=== PATIENT | male | born 1945 | race Caucasian/White ===

== ENCOUNTER 2021-05-17 15:13 | Inpatient (IN) | payer MEDICARE, SELFPAY ==
--- NOTE | ~2021-05-17 | XR_ITS ---
XR chest 2V DATE: 05/24/2021 06:26 INDICATION: Confusion. Recent abdominal surgery. History of congestive heart failure. TECHNIQUE: 2 views COMPARISON: None FINDINGS: Status post sternotomy and coronary artery bypass graft surgery. Left-sided transvenous pac emaker device with leads overlying right atrium and right ventricle. Heart size is within normal range. There is aortic calcification and ectasia. There is prominent discoid atelectasis or scarring in the medial right lower lung. There is mild infiltrate or atelectasis at the lung bases. No pulmonary vascular congestion. No pleural effusion or pneumothorax is noted. Myriam overlie the upper mid abdomen. Subacute or old lateral left seventh rib fracture. Diffuse osteopenia. IMPRESSION: Recent abdominal surgery with skin myriam over the included upper abdomen Bibasilar atelectasis Reviewed, dictated and finalized at location A. ING CARRIER
--- OUTSIDE RECORDS SUMMARY | 2021-05-17 15:23 | XMS_ITS | Encounter Summary ---
:1945 Author Care Team Providers Name Role Phone Dr. Mina Ramírez Primary Care Provider [phone] Reason for Visit diabetic foot exam; Bilateral Diabetic t oenail fungus; Bilateral Diabetic Ingrown Toenails Assessment and Plan 1. History of influenza vaccinat ion 2. Peripheral circulatory disord er due to type 2 diabetes mellitus 3. Onychomycosis of toenails Patient presents with fungus a nd recurrent ingrown toenails. Based on history, physical exam, and prior treatments, I recommend debridement of the toenails, removing the offending borders. 4. Ingrowing toenail ? ingrown toenail: care inst ructions 5. Pain in left foot 6. Pain in right foot Discussion Note Time spent interviewing, examining, treating the patient, and documenting the chart was 35 minutes. Plan of Care Patient Instructions Instructed patient on how to perfor m daily inspection of their feet for anything out of the ordinary such as cuts, scrape s, blisters, foreign objects, etc. Also discussed moisturizing the skin and insp ecting their shoes for any form of breakdown. Discussed wearing firm soled shoes aroun d their home. Patient is to test water temperature before soaking or bathing. Reminders Provider Appointments Medicare Marla Kay Established 06/22/2021 YUSEF Carroll 9:30AM Lab None recorded. ? ? Referral None recorded. ? ? Procedures None recorded. ?
--- OUTSIDE RECORDS SUMMARY | 2021-05-17 15:23 | XMS_ITS ---
:1945 Author Care Team Providers Name Role Phone DR. JUAN MIGUEL MALIK Primary Care Provider [phone] Allergies Code Code System Name Reaction Severity Status Onset NKDA ? Medications Name Status Start Date Stop Date ? ? amlodipine 10 mg tablet Completed ? 01/06/20 21 TAKE 1 TABLET BY MOUTH DAILY aspirin 325 mg tablet Active ? Not availa ble Take 1 tablet every day by oral route. doxycycline hyclate 100 mg tablet Completed ? 01/05/2021 TAKE 1 TABLET BY MOUTH TWO TIMES A DAY finasteride 5 mg tablet Active ? Not avai lable TAKE 1 TABLET BY MOUTH DAILY Fish Oil 1,000 mg (120 mg-180 mg) capsule Active ? Not available Take by oral route. Fluzone High-Dose Quad (PF) 240 mcg/0.7 mL IM syringe Ac tive ? Not available ADM 0.7ML IM UTD gabapentin 300 mg capsule Active ? Not av ailable TAKE 1 CAPSULE BY MOUTH DAILY AT BEDTIME Glipizide XL 5 mg tablet,extended release Completed ? 01/05/2021 Take 1 tablet every day by oral route. hydrochlorothiazide 25 mg tablet Completed ? 01/05/2021 Take 1 tablet every day by oral route. lisinopril 20 mg tablet Active ? Not avai lable TAKE 1 TABLET BY MOUTH DAILY lisinopril 40 mg tablet Completed ? 01/06/20 21 Take 1 tablet by mouth daily metformin ER 500 mg tablet,extended release 24 hr Active ? Not available TAKE 1 TABLET BY MOUTH DAILY metoprolol tartrate 100 mg tablet Completed ? 12/23
[2021-05-17 15:41] VITALS: BMI 24.5
--- NOTE | 2021-05-17 15:45 | ADMGEN ---
This patient, Valeriano Lopez, was admitted to 2nd Floor Room 208-2. Patient/family oriented to hospital policies and general routines including ID bracelet, bed and alarms, visiting hours, pain management, procedures, bathroom and other care routines, personal items, smoking policy, room service/diet, and visiting hours. Information on how to activate the Rapid Response Team has been discussed. Patient/Family are encouraged to report perceived risks to care and to ask questions if they do not understand what they are told or what they should do.
[2021-05-17 16:00] VITALS: BP 146/68; PULSE 76; RESP 18; TEMP 36.4; O2SAT 99
[2021-05-17 16:20] VITALS: BP 146/68; PULSE 76; RESP 18; TEMP 36.4; O2SAT 99; BMI 24.5
--- NOTE | 2021-05-17 16:42 | PC.NURSE ---
is leaving for the evening, therapy is in for evaluation
[2021-05-17 16:55] LABS: Glucose Point of Care 142 mg/dl (65-105)
--- NOTE | 2021-05-17 18:00 | PC.NURSE ---
pt states he goes to bed by 1800 usually, requests hs meds now so he is not woken up, bed alarm is on, lights off per pt request, urinal at bedside, fresh depend applied, dressing change done on op site L groin, photos taken, call light in reach
[2021-05-17] MEDS: ATORVASTATIN 40 MG TABLET 80 MG PO (18:11)
[2021-05-17] MEDS: GABAPENTIN 100 MG CAPSULE PO (18:11)
[2021-05-17] MEDS: ACETAMINOPHEN 325 MG TABLET 650 MG PO (18:12)
[2021-05-17 20:46] LABS: Glucose Point of Care 117 mg/dl (65-105)
[2021-05-18] VITALS: BP 136/67; PULSE 72; RESP 18; TEMP 36.7; O2SAT 95
[2021-05-18 05:22] LABS: Hemoglobin 9.9 g/dL (12.4-15.3); Mean Corpuscular HGB Conc 31.9 g/dL (32.0-36.0); Mean Corpuscular Hemoglobin 29.5 pg (27.0-31.0); Mean Corpuscular Volume 92.3 fL (78.0-102.0); Mean Platelet Volume 9.4 fl (8.7-11.0); Platelet Count Result 305 K/mm3 (150-420); Red Blood Count 3.36 M/mm3 (4.70-6.10); Red Cell Distribution Width 15.9 % (11.6-14.4); White Blood Count 7.6 K/mm3 (4.8-10.8)
[2021-05-18 05:37] LABS: Alanine Aminotransferase 90 U/L (16-63); Albumin Level 2.2 g/dL (3.4-5.0); Alkaline Phosphatase 142 U/L (46-116); Anion Gap 9 mmol/L (8-16); Aspartate Amino Transferase 26 U/L (15-37); Bilirubin,Total 0.7 mg/dL (0.00-1.00); Blood Urea Nitrogen 7 mg/dL (7-18); Calcium 7.9 mg/dL (8.5-10.1); Carbon Dioxide 24 mmol/L (21-32); Chloride 106 mmol/L (98-108); Estimated CRCL calculation 72 ml/min; Estimated Glomerular Filt Rate > 60; Glucose 111 mg/dL (70-99); Magnesium 1.6 mg/dL (1.8-2.4); Osmolality Calculated 287 mOsm/kg (285-295); Potassium 3.6 mmol/L (3.5-5.1); Sodium 139 mmol/L (136-145); Total Protein 5.3 g/dL (6.4-8.2)
--- NOTE | 2021-05-18 06:52 | PC.NURSE ---
Spoke with Barbara, patient , she states she thinks she has plug in for wound vac and will bring it in as soon as she can. Thi executive compensation analyst informed.
--- OUTSIDE RECORDS SUMMARY | 2021-05-18 07:38 | XMS_ITS | Continuity of Care Document ---
:[address] [facility] Care Team Providers Name Role Phone [facility] Unavailable Unavailable Problems Combined list of problems from Department of Defense and Veterans Affairs facilities. It does not include entries that were removed or entered in error. Problem Status Onset Problem Date of Comments Source Date Type Resolution Blindness - Both Active Condition [facility] Eyes ([facility] [id number]) Sep 23, 2018 Entered By: SHERITA REYES Comment: secondary to diabetes CAD - Coronary Active Condition [facility] Artery Disease ([facility] [id number])
--- OUTSIDE RECORDS SUMMARY | 2021-05-18 07:38 | XMS_ITS | Encounter Summary ---
:1945 Author Organization Department [facility] Address [address] [place] [address] Care Team Providers Name Role Phone STALINLETICIA RAQUEL Primary Care Provider Unavailable Insurance Providers: All historical and current Section Date Range: From patient's date of to the date document was created.This section includes the names of all active insurance providers for the patient. Insurance Type of Plan Start of End of Group Member Insurance Policy P atient's Provider Coverage Name Policy Policy Number ID Provider's Petersen's Relationship Coverage Coverage Telephone Name to Policy Number Petersen [facility]MERLY [facility] MEDICARE MED Aug [id number] [phone] LULI GARCIA PATIENT SUPPLEMEN SUP 2008 [id number] [place] BCBS ID MEDICARE MEDIC Aug [id number] DIVYA GARCIA SUPPLEMEN ARE 2008 [id number] [phone] [place] SUPPL EMENT [facility] MEDICARE MEDIC Aug [id number] [phone] DIVYA KHAN PATIENT [place] SUPPLEMEN ARE 2008 [id number] [place] SUPPL EMENT MEDICARE MEDICARE PART Aug 23, PART A [id number] [phone] DIVYA GARCIA PATIENT (WNR) (M) A 2008 95A 7 MAS MEDICARE MEDICARE PART Aug 23, PART B [id number] [phone] DIVYA GARCIA PATIENT (WNR) (M) B 2008 95
[2021-05-18 07:39] LABS: Glucose Point of Care 120 mg/dl (65-105)
--- OUTSIDE RECORDS SUMMARY | 2021-05-18 07:39 | XMS_ITS | Encounter Summary ---
:1945 Author Organization Department [facility] rs Address [address] [place] [address] Care Team Providers Name Role Phone RAQUEL LANZA Primary Care Provider Unavailable Insurance Providers: All [...] Telephone Name to Policy Number Petersen [facility]LY [facility] MEDICARE MED Aug [id number] [phone] LULI GARCIA PATIENT SUPPLEMEN SUP 2008 [id number] [place] BCBS ID MEDICARE MEDIC Aug [id number] DIVYA GARCIA [place] SUPPLEMEN ARE 2008 [id number] [phone] [place] SUPPL EMENT [facility] MEDICARE MEDIC Aug [id number] [phone] DIVYA KHAN PATIENT [place] SUPPLEMEN ARE 2008 [id number] [place] SUPPL EMENT MEDICARE MEDICARE PART Aug 23, PART A [id number] DIVYA GARCIA PATIENT (WNR) (M) A 2008 95A 7 MAS MEDICARE MEDICARE PART Aug 23, PART B [id number] [phone] DIVYA GARCIA PATIENT (WNR) (M) B 2008
--- OUTSIDE RECORDS SUMMARY | 2021-05-18 07:39 | XMS_ITS | Encounter Summary ---
:1945 Author Organization Department [facility] rs Address [address] [place] [address] Care Team Providers Name Role Phone RAQUEL [...] Coverage Telephone Name to Policy Number Petersen ANTHE[place] MEDICARE MED Aug [id number] [phone] LULI GARCIA PATIENT SUPPLEMEN SUP 2008 [id number] [place] BC[place] MEDICARE MEDIC Aug [id number] DIVYA GARCIA PA TIENT SUPPLEMEN ARE 2008 [id number] [phone] [place] SUPPL EMENT [facility] MEDICARE MEDIC Aug [id number] [phone] DIVYA KHAN PATIENT [place] SUPPLEMEN ARE 2008 [id number] [place] SUPPL EMENT MEDICARE MEDICARE PART Aug 23, PART A [id number] DIVYA GARCIA PATIENT (WNR) (M) A 2008 95A 7 MAS MEDICARE MEDICARE PART Aug 23, PART B [id number] [phone] DIVYA GARCIA PATIENT (WNR) (M) B 2008 95A
--- OUTSIDE RECORDS SUMMARY | 2021-05-18 07:39 | XMS_ITS | Encounter Summary ---
:1945 Author Organization Department [facility] rs Address [address] [place] [address] Care Team Providers Name Role Phone RAQUEL [...] Number Petersen ANTHEM MEDICARE MED Aug [id number] [phone] LULI GARCIA PATIENT SUPPLEMEN SUP 2008 [id number] [place] BC[place] MEDICARE MEDIC Aug [id number] DIVYA GARCIA SUPPLEMEN ARE 2008 [id number] [phone] [place] SUPPL EMENT [facility] MEDICARE MEDIC Aug [id number] [phone] DIVYA KHAN PATIENT [place] SUPPLEMEN ARE 2008 [id number] [place] SUPPL EMENT MEDICARE MEDICARE PART Aug 23, PART A [id number] [phone] DIVYA GARCIA PATIENT (WNR) (M) A 2008 95A 7 MAS MEDICARE MEDICARE PART Aug 23, PART B [id number] [phone] DIVYA GARCIA PATIENT (WNR) (M) B 2008 95
--- OUTSIDE RECORDS SUMMARY | 2021-05-18 07:40 | XMS_ITS ---
:1945 Author Care Team Providers Name Role Phone DR. JUAN MIGUEL MALIK Primary Care Provider [phone] Allergies Code Code System Name Reaction Severity [...]
--- OUTSIDE RECORDS SUMMARY | 2021-05-18 07:40 | XMS_ITS | Encounter Summary ---
:1945 Author Organization Department [facility] rs Address [address] [place] [address] Care Team Providers Name Role Phone RAQUEL [...] Coverage Telephone Name to Policy Number Petersen [facility] MEDICARE MED Aug [id number] [phone] LULI GARCIA PATIENT SUPPLEMEN SUP 2008 [id number] [place] MEDICARE MEDIC Aug [id number] DIVYA GARCIA PA TIEMALLORIE SUPPLEMEN ARE 2008 [id number] [phone] [place] SUPPL EMENT [facility] MEDICARE MEDIC Aug [id number] [phone] DIVYA KHAN PATIENT [place] SUPPLEMEN ARE 2008 [id number] [place] SUPPL EMENT MEDICARE MEDICARE PART Aug 23, PART A [id number] [phone] DIVYA GARCIA PATIENT (WNR) (M) A 2008 95A 7 MAS MEDICARE MEDICARE PART Aug 23, PART B [id number] [phone] DIVYA GARCIA PATIENT (WNR) (M) B 2008
--- OUTSIDE RECORDS SUMMARY | 2021-05-18 07:40 | XMS_ITS | Encounter Summary ---
:1945 Author Care Team Providers Name Role Phone Dr. Mina Ramírez Primary Care Provider [phone] Reason for Visit diabetic foot exam; Bilateral [...]
--- OUTSIDE RECORDS SUMMARY | 2021-05-18 07:40 | XMS_ITS | Encounter Summary ---
:1945 Author Organization Department [facility] rs Address [address] [place] [address] Care Team Providers Name Role Phone RAQUEL [...] Number Petersen ANTHEM MEDICARE MED Aug [id number] [phone] LULI GARCIA PATIENT SUPPLEMEN SUP 2008 [id number] [place] MEDICARE MEDIC Aug [id number] DIVYA GARCIA SUPPLEMEN ARE 2008 [id number] [phone] [place] SUPPL EMENT [facility] MEDICARE MEDIC Aug [id number] [phone] DIVYA KHAN PATIENT [place] SUPPLEMEN ARE 2008 [id number] [place] SUPPL EMENT MEDICARE MEDICARE PART Aug 23, PART A [id number] [phone] DIVYA GARCIA PATIENT (WNR) (M) A 2008 95A 7 MAS MEDICARE MEDICARE PART Aug 23, PART B [id number] [phone] DIVYA GARCIA PATIENT (WNR) (M) B 2008 95
[2021-05-18 07:51] VITALS: BP 144/66; PULSE 70; RESP 16; TEMP 37.2; O2SAT 98
--- NOTE | 2021-05-18 08:06 | PC.NURSE ---
Patient's delivered cord to wound vac and it is plugged in and charging.
[2021-05-18] MEDS: metFORMIN HCL XR 500 MG TAB.SR.24H PO (08:30)
[2021-05-18] MEDS: ASPIRIN 81 MG ENTERIC TABLET PO (08:30)
[2021-05-18] MEDS: PANTOPRAZOLE 40 MG TABLET PO (08:30)
[2021-05-18] MEDS: CLOPIDOGREL BISULFATE 75 MG TABLET PO (08:30)
[2021-05-18] MEDS: DOCUSATE SODIUM 100 MG CAPSULE PO ×2 (08:31→18:03)
[2021-05-18] MEDS: amLODIPine BESYLATE 5 MG TABLET 10 MG PO (08:31)
[2021-05-18] MEDS: lisinopriL 20 MG TABLET PO (08:31)
[2021-05-18] MEDS: FINASTERIDE 5 MG TABLET PO (08:31)
[2021-05-18] MEDS: ACETAMINOPHEN 325 MG TABLET 650 MG PO (08:33)
--- NOTE | 2021-05-18 10:26 | PM.IMHP ---
H&P: HPI History of Present Illness Date/Time: 05/18/21 10:26 this is a 75-year-old male that was accepted into our swing bed status post elective AAA repair. Patient admitted in swing bed for rehabilitation due to decreased balance decreased mobility in severe limited function endurant and/or mobility. The patient denies SOB, CP, palpitation, extremity numbness, abdominal tenderness ,lightheadedness, dizziness, constipation, diarrhea, chills, or fever. Chief Complaint: Weakness Review of Systems Review of Systems: A 14 organ system Review of Systems was performed and pertinent positives included in the HPI, otherwise remaining ROS is negative. [facility] Past Medical History Medical History (Updated 05/18/21 @ 10:27 by SHANNON Connelly) AAA (abdominal aortic aneurysm) Anemia Bilateral carotid artery stenosis without cerebral infarction CAD (coronary artery disease) Chronic headache COPD (chronic obstructive pulmonary disease) Diabetes mellitus Duodenal ulcer hemorrhage Frequent falls HLD (hyperlipidemia) HTN (hypertension) ICD (implantable cardioverter-defibrillator) battery depletion Incontinence of urine Neuropathy PAD (peripheral artery disease) Paroxysmal A-fib Peripheral circulatory disorder associated with type 2 diabetes mellitus Renal cyst, acquired Syncopal episodes TIA (transient ischemic attack) Tobacco dependence Ventricular tachycardia Vision loss of right eye Surgical History Surgical History (Updated 05/18/21 @ 09:57 by SHANNON Connelly) History of appendectomy History of hemiarthroplasty of hip 02/27/2017 History of hip surgery History of loop recorder S/P CABG (coronary artery bypass graft) 02/22/2006 Family History Family History (Updated 05/17/21 @ 15:46 by Lindsey Nunes RN) Sibling Alzheimer disease Social History Social History Smoking status: Former smoker Tobacco type: cigarettes Second hand tobacco smoke exposure: Yes Alcohol intake: never Substance use: never Substance use type: does not use Spiritual care concerns: No Meds Home Medications and Allergies Home Medications Medication Instructions Recorded Confirmed Type amlodipine 10 mg PO DAILY 05/17/21 05/17/21 History aspirin [Adult Aspirin EC Low 81 mg PO DAILY 05/17/21 05/17/21 History Strength] atorvastatin 80 mg PO HS 05/17/21 05/17/21 History clopidogrel 75 mg PO DAILY 05/17/21 05/17/21 History docusate sodium 100 mg PO DAILY 05/17/21 05/17/21 History finasteride 5 mg PO DAILY 05/17/21 05/17/21 History gabapentin 100 mg PO HS 05/17/21 05/17/21 History lisinopril 20 mg PO DAILY 05/17/21 05/17/21 History metformin 500 mg PO DAILY 05/17/21 05/17/21 History pantoprazole [Protonix] 40 mg PO QAM 05/17/21 05/17/21 History polyethylene glycol 3350 [GlycoLax] 17 g PO DAILY PRN 05/17/21 05/17/21 History psyllium husk [Daily Fiber] 0.4 g PO DAILY 05/17/21 05/17/21 History Allergies Allergy/AdvReac Type Severity Reaction Status Date / Time penicillin V Allergy Intermediate Rash Verified 05/17/21 15:46 Penicillins Allergy Intermediate Swelling Verified 05/17/21 15:46 Vital Signs Vital Signs - 24 hr 05/17/21 16:00 05/17/21 16:20 05/18/21 00:00 Temperature 97.6 F 97.6 F 98.1 F Pulse Rate 76 76 72 Respiratory Rate 18 18 18 Blood Pressure 146/68 H 146/68 H 136/67 Pulse Oximetry 99 99 95 05/18/21 07:51 Temperature 98.9 F Pulse Rate 70 Respiratory Rate 16 Blood Pressure 144/66 H Pulse Oximetry 98 Exam Narrative: GENERAL: This is a well-nourished, well-developed patient, in no apparent distress. HEAD: normocephalic, atraumatic. EYES: PERRL. Sclera clear/white. Vision is grossly intact. EARS: External ears normal, auditory canals clear and without drainage, TMs normal without perforation. Hearing grossly intact. NOSE: External nose normal with no obvious nasal discharge, nares without redness, no rhinorrhea. THROAT: Mucous membranes moist, posterior pharynx clear. NEC
[2021-05-18 11:15] LABS: Hemoglobin A1C 5.6 % (<5.7)
[2021-05-18 11:44] LABS: Glucose Point of Care 172 mg/dl (65-105)
[2021-05-18] MEDS: CALCIUM CARBONATE (OSCAL) 250 MG TABLET PO (14:54)
[2021-05-18] MEDS: MAGNESIUM OXIDE 400 MG TABLET PO (14:55)
[2021-05-18 15:56] VITALS: BP 116/74; PULSE 88; RESP 20; TEMP 36.1; O2SAT 97
[2021-05-18 17:06] LABS: Glucose Point of Care 98 mg/dl (65-105)
[2021-05-18] MEDS: ATORVASTATIN 40 MG TABLET 80 MG PO (21:03)
[2021-05-18] MEDS: GABAPENTIN 100 MG CAPSULE PO (21:03)
[2021-05-18] MEDS: traZODone HCL 50 MG TABLET PO (21:04)
[2021-05-19] VITALS: BP 126/61; PULSE 92; RESP 20; TEMP 36.6; O2SAT 97
--- NOTE | 2021-05-19 02:10 | PC.NURSE ---
Patient calling out. Did not know where he was or why he was in the hospital. Had disconnected his wound vac. Wound vac reconnected. Attempted to reorient to surroundings and circumstances
--- NOTE | 2021-05-19 06:06 | PC.NURSE ---
Patient disconnected wound vac throughout the night
[2021-05-19 07:40] LABS: Glucose Point of Care 100 mg/dl (65-105)
[2021-05-19] MEDS: DOCUSATE SODIUM 100 MG CAPSULE PO ×2 (07:55→17:02)
[2021-05-19] MEDS: amLODIPine BESYLATE 5 MG TABLET 10 MG PO (07:56)
[2021-05-19] MEDS: ASPIRIN 81 MG ENTERIC TABLET PO (07:56)
[2021-05-19] MEDS: CLOPIDOGREL BISULFATE 75 MG TABLET PO (07:56)
[2021-05-19] MEDS: FINASTERIDE 5 MG TABLET PO (07:57)
[2021-05-19] MEDS: metFORMIN HCL XR 500 MG TAB.SR.24H PO (07:57)
[2021-05-19] MEDS: MAGNESIUM OXIDE 400 MG TABLET PO (07:57)
[2021-05-19] MEDS: lisinopriL 20 MG TABLET PO (07:57)
[2021-05-19] MEDS: PANTOPRAZOLE 40 MG TABLET PO (07:57)
[2021-05-19] MEDS: CALCIUM CARBONATE (OSCAL) 250 MG TABLET PO (07:58)
[2021-05-19 08:00] VITALS: BP 134/64; PULSE 66; RESP 16; TEMP 36.7; O2SAT 98
--- NOTE | 2021-05-19 10:32 | PC.NURSE ---
Dry Chain Worker changed dressing on L groin and found sutures intact. Serous drainage from center of incision. Wound clean. New gauze applied. TILE MACHINE OPERATOR was asked to look at wound to ensure proper healing. TILE MACHINE OPERATOR satisfied with progress.
[2021-05-19 11:55] LABS: Glucose Point of Care 162 mg/dl (65-105)
[2021-05-19 16:00] VITALS: BP 131/67; PULSE 85; RESP 16; TEMP 36.6; O2SAT 98
[2021-05-19 16:35] LABS: Glucose Point of Care 91 mg/dl (65-105)
[2021-05-19] MEDS: ACETAMINOPHEN 325 MG TABLET 650 MG PO (18:14)
[2021-05-19] MEDS: ATORVASTATIN 40 MG TABLET 80 MG PO (20:48)
[2021-05-19] MEDS: traZODone HCL 50 MG TABLET PO (20:49)
[2021-05-19] MEDS: GABAPENTIN 100 MG CAPSULE PO (20:49)
[2021-05-19 23:02] VITALS: BP 117/63; PULSE 72; RESP 20; TEMP 36.8; O2SAT 98
--- NOTE | 2021-05-19 23:15 | PC.NURSE ---
Pt was found to have spilled his water cup in at the bottom of his bed. Pt was found to be dry however and was then transferred by this junior copywriter and Lindsey Nunes RN. from the bed to the chair with walker and gait belt. Pt handled transfer well. Bed linens were replaced with dry ones. Chair alarm activated and call light within reach of pt.
--- NOTE | 2021-05-20 00:10 | PC.NURSE ---
Pt was transferred from chair to bed via 1 assist, walker, and gait belt. Pt handled transfer well. Bed placed in lowest position and bed alarm on for pt safety. Call light placed within reach.
--- NOTE | 2021-05-20 00:21 | PC.NURSE ---
Date updated on pt whiteboard.
[2021-05-20] MEDS: FINASTERIDE 5 MG TABLET PO (07:56)
[2021-05-20] MEDS: DOCUSATE SODIUM 100 MG CAPSULE PO ×2 (07:57→16:54)
[2021-05-20] MEDS: CLOPIDOGREL BISULFATE 75 MG TABLET PO (07:57)
[2021-05-20] MEDS: PANTOPRAZOLE 40 MG TABLET PO (07:57)
[2021-05-20] MEDS: amLODIPine BESYLATE 5 MG TABLET 10 MG PO (07:58)
[2021-05-20] MEDS: CALCIUM CARBONATE (OSCAL) 250 MG TABLET PO (07:58)
[2021-05-20] MEDS: lisinopriL 20 MG TABLET PO (07:58)
[2021-05-20] MEDS: ASPIRIN 81 MG ENTERIC TABLET PO (07:59)
[2021-05-20 08:00] VITALS: BP 142/62; PULSE 70; RESP 20; TEMP 37; O2SAT 98
[2021-05-20 10:05] LABS: Glucose Point of Care 117 mg/dl (65-105)
[2021-05-20] MEDS: MAGNESIUM OXIDE 400 MG TABLET PO (10:24)
[2021-05-20] MEDS: metFORMIN HCL XR 500 MG TAB.SR.24H PO (10:24)
[2021-05-20 11:50] LABS: Glucose Point of Care 148 mg/dl (65-105)
[2021-05-20 13:26] LABS: Add Urine Microscopic? NO; Appearance Urine Clear (Clear); Bilirubin Urine Negative (Negative); Blood Urine Negative (Negative); Color Urine Yellow (Yellow); Glucose Urine UA Negative (Negative); Ketones Urine Negative (Negative); Leukocyte Esterase Ur Negative LEU/UL (Negative); Nitrate Urine Negative (Negative); Protein Urine Negative (Negative); Specific Grav Ur 1.015 (1.010-1.020); Urobilinogen Urine 0.2 mg/dL (0.2-1.0)
[2021-05-20 15:57] VITALS: BP 116/74; PULSE 75; RESP 18; TEMP 36.6; O2SAT 95
--- NOTE | 2021-05-20 16:49 | PC.NURSE ---
Glucose 109, asked patient to get up for dinner, states isn't going to get up for dinner, not hungry, advised of importance of eating for healing, still not wanting to get out of bed at this time,
[2021-05-20] MEDS: traZODone HCL 50 MG TABLET PO (21:17)
[2021-05-20] MEDS: GABAPENTIN 100 MG CAPSULE PO (21:17)
[2021-05-20] MEDS: ATORVASTATIN 40 MG TABLET 80 MG PO (21:17)
[2021-05-20 21:26] LABS: Glucose Point of Care 108 mg/dl (65-105)
[2021-05-20 21:38] LABS: Glucose Point of Care 109 mg/dl (65-105)
--- NOTE | 2021-05-20 22:07 | PC.NURSE ---
Heel protectors applied bilaterally and heels are supported by a pillow and floating after finding a sore on pt's left heel. Dressing applied and charted with wound dimensions and photos uploaded to file. Pt had incontinent void so his depends were changed and hygiene wipes were used to clean the gisela area. Pt assisted with turning and hygiene after instruction and reinforcement was provided. Bed was then lowered to the lowest position and bed alarm remained on for pt safety. 4 bed rails raised per pt request and call light within reach.
[2021-05-20 23:39] VITALS: BP 119/65; PULSE 84; RESP 17; TEMP 36.6; O2SAT 97
--- NOTE | 2021-05-21 05:43 | PC.NURSE ---
Pt ambulated from the bed to the bathroom and returned to bed with 1 assist going to bathroom and 2 assist back, walker, and gait belt. Pt performed ambulation well, but did get short of breath when returning to bed. Pt had a bm consisting of small formed brown stool. Pt dribbled urine in the toilet, and had incontinent void while sleeping in the night. Pt verbalized he tried to urinate, but could not get a stream only dribbling. Pt's depend was then changed at bedside. Heels are elevated with a pillow to a floating position and call light placed within reach. Bed alarm is active for pt safety.
[2021-05-21 07:38] LABS: Glucose Point of Care 109 mg/dl (65-105)
[2021-05-21 08:00] VITALS: BP 93/50; PULSE 82; RESP 16; TEMP 36.9; O2SAT 98
--- NOTE | 2021-05-21 08:21 | WPDPN ---
Subjective Date/time seen: 05/21/21 08:21 received reports the patient had urinary hesitancy added Flomax to medication. Also received report that patient had the left heel order placed to float heels. Received report that patient had fungal Objective Data Vital Signs Vital Signs: Vital Signs - 24 hr 05/20/21 15:57 05/20/21 23:39 Temperature 97.9 F 97.9 F Pulse Rate 75 84 Respiratory Rate 18 17 Blood Pressure 116/74 119/65 Pulse Oximetry 95 97 Intake/Output Intake/Output: Intake & Output 05/18/21 05/19/21 05/20/21 05/21/21 23:59 23:59 23:59 23:59 Intake Total 0186 592 3235 30 Output Total 650 475 Balance 104 829 3576 30 Meds/Results Medications: Active Medications Generic Name Dose Route Start Last Admin Trade Name Freq PRN Reason Stop Dose Admin Acetaminophen 650 mg 05/17/21 16:11 05/19/21 18:14 Acetaminophen 325 Mg Tablet PO 650 mg Q4H PRN Administration Headache Hydrocodone Bitart/Acetaminophen 1 tab 05/17/21 16:11 Hydrocodone/Acetaminophen (*Crx) 5-325 Mg Tablet PO Q6H PRN Pain Rated 7-10 Albuterol 2 puff 05/18/21 10:39 Albuterol Sulfate (*Sp) Inhaler INHALATION QID PRN Shortness Of Breath Amlodipine Besylate 10 mg 05/18/21 09:00 05/20/21 07:58 Amlodipine Besylate 5 Mg Tablet PO 10 mg DAILY MARY Administration Aspirin 81 mg 05/18/21 09:00 05/20/21 07:59 Aspirin 81 Mg Enteric Tablet PO 81 mg DAILY MARY Administration Atorvastatin Calcium 80 mg 05/17/21 21:00 05/20/21 21:17 Atorvastatin 40 Mg Tablet PO 80 mg HS MARY Administration Calcium Carbonate 250 mg 05/19/21 08:00 05/20/21 07:58 Calcium Carbonate (Oscal) 250 Mg Tablet PO 250 mg DAILY@0800 MARY Administration Clopidogrel Bisulfate 75 mg 05/18/21 09:00 05/20/21 07:57 Clopidogrel Bisulfate 75 Mg Tablet PO 75 mg DAILY MARY Administration Dextrose 12.5 gm 05/17/21 16:19 Dextrose 50% 25 Gm/50 Ml Syringe IV PUSH PRN PRN Hypoglycemia Protocol Docusate Sodium 100 mg 05/18/21 09:00 05/20/21 16:54 Docusate Sodium 100 Mg Capsule PO 05/27/21 17:01 100 mg BID MARY Administration Finasteride 5 mg 05/18/21 09:00 05/20/21 07:56 Finasteride 5 Mg Tablet PO 5 mg DAILY MARY Administration Gabapentin 100 mg 05/17/21 21:00 05/20/21 21:17 Gabapentin 100 Mg Capsule PO 100 mg HS MARY Administration Glucagon 1 mg 05/17/21 16:19 Glucagon For Inj 1 Mg Vial IM PRN PRN Hypoglycemia Protocol Glucose 15 gm 05/17/21 16:19 Glucose Oral Gel 15 Gm Of Glucse In 37.5 Gm Tube PO PRN PRN Hypoglycemia Protocol Dextrose 1,000 mls @ 100 mls/hr 05/17/21 16:19 Dextrose 5% 1,000 Ml IVPB PRN PRN Hypoglycemia Protocol Insulin Human Lispro 2 - 5 units 05/17/21 17:00 05/20/21 16:55 Insulin Human Lispro (*Bkc) 100 Units/Ml SUB-Q Not Given TIDWM [facility] Protocol Lisinopril 20 mg 05/18/21 09:00 05/20/21 07:58 Lisinopril 20 Mg Tablet PO 20 mg DAILY [facility] Administration Lorazepam 0.5 mg 05/17/21 16:15 Lorazepam (*Crx) 0.5 Mg Tablet PO Q6H PRN Anxiety Magnesium Oxide 400 mg 05/19/21 09:00 05/20/21 10:24 Magnesium Oxide 400 Mg Tablet PO 400 mg DAILY MARY Administration Metformin HCl 500 mg 05/18/21 09:00 05/20/21 10:24 Metformin Hcl Xr 500 Mg Tab.Sr.24h PO 500 mg DAILY [facility] Administration Pantoprazole Sodium 40 mg 05/18/21 09:00 05/20/21 07:57 Pantoprazole 40 Mg Tablet PO 40 mg QAM [facility] Administration Polyethylene Glycol 17 gm 05/17/21 16:08 Polyethylene Glycol 3350 17 Gm Powd.Pack PO DAILY PRN Constipation Tamsulosin HCl 0.4 mg 05/21/21 09:00 Tamsulosin Hcl 0.4 Mg Capsule PO QAM MARY Tramadol HCl 50 mg 05/17/21 16:11 Tramadol Hcl (*Crx) 50 Mg Tablet PO Q6H PRN Pain Rated 4-6 Trazodone HCl 50 mg 05/18/21 21:00 05/20/21 21:17 Trazodone Hcl 50 Mg Tablet PO
--- NOTE | 2021-05-21 08:27 | PM.EVENT ---
Event Note Event Note Event Note: received reports the patient had urinary hesitancy added Flomax to medication. Also received report that patient had the left heel order placed to float heels appears to be a stage II. Received report that patient had fungal growth in his groin area and interglueal cleft area antifungal ordered. Education patient on preventing a worsening his ulcers by floating heels and preventing pressure to the affected area.
[2021-05-21] MEDS: ASPIRIN 81 MG ENTERIC TABLET PO (08:46)
[2021-05-21] MEDS: metFORMIN HCL XR 500 MG TAB.SR.24H PO (08:46)
[2021-05-21] MEDS: CLOPIDOGREL BISULFATE 75 MG TABLET PO (08:47)
[2021-05-21] MEDS: MAGNESIUM OXIDE 400 MG TABLET PO (08:47)
[2021-05-21] MEDS: FINASTERIDE 5 MG TABLET PO (08:47)
[2021-05-21] MEDS: DOCUSATE SODIUM 100 MG CAPSULE PO ×2 (08:47→17:41)
[2021-05-21] MEDS: PANTOPRAZOLE 40 MG TABLET PO (08:47)
[2021-05-21] MEDS: CALCIUM CARBONATE (OSCAL) 250 MG TABLET PO (08:47)
[2021-05-21] MEDS: TAMSULOSIN HCL 0.4 MG CAPSULE PO (08:47)
--- NOTE | 2021-05-21 08:57 | PM.EVENT ---
Event Note Event Note Event Note: patient bp soft amlodipine decreased from 20>10 mg daily and lisinipril 20>10 mg . will continue to monitor.
[2021-05-21] MEDS: MICONAZOLE NITRATE 2% CREAM 30 GM TUBE 1 APPLIC TOPICAL ×2 (09:01→21:39)
--- NOTE | 2021-05-21 12:42 | PC.NURSE ---
0730 - Patient transferred from bed to chair with gait belt, walker and assistance of one. Blood glucose performed - 109. Chair alarm on. 0800 - Assisted patient with meal set up and hand hygiene. 0830 - Patient ate 100% of breakfast 0900 - Bed bath completed in chair with assistance on back side and lower extremities. Dressing to left groin change to dry gauze and tape. Dressing to left heel changed to mepilex. Patient dressed in clean clothing. elevated legs to float heels. Chair alarm on. 1000 - Patient requesting to go back to bed. Encouraged patient to remain up in chair as physical therapy will be working with him today. 1130 - Patient sleeping and sliding down. Continues to request to go back to bed. Transferred pt back to bed with gait belt, walker and assistance of 2 1200 - Sat patient up in bed for lunch. Assisted with meal set up. Educated patient on importance of nutrition. Assisted patient with hand hygiene 1230 - Patient drank 100% of liquids and only 50% of meal. 1245 - Spouse present to visit patient. Spouse to take soiled laundry home
[2021-05-21 16:58] LABS: Glucose Point of Care 111 mg/dl (65-105)
[2021-05-21 16:58] LABS: Glucose Point of Care 134 mg/dl (65-105)
[2021-05-21] MEDS: ATORVASTATIN 40 MG TABLET 80 MG PO (21:38)
[2021-05-21] MEDS: GABAPENTIN 100 MG CAPSULE PO (21:39)
[2021-05-21] MEDS: traZODone HCL 50 MG TABLET PO (21:39)
[2021-05-21 21:43] LABS: Glucose Point of Care 97 mg/dl (65-105)
[2021-05-21 23:28] VITALS: BP 116/61; PULSE 81; RESP 17; TEMP 37; O2SAT 96
[2021-05-22 07:37] LABS: Glucose Point of Care 112 mg/dl (65-105)
[2021-05-22] MEDS: CALCIUM CARBONATE (OSCAL) 250 MG TABLET PO (07:53)
[2021-05-22] MEDS: DOCUSATE SODIUM 100 MG CAPSULE PO ×2 (07:54→18:26)
[2021-05-22] MEDS: MAGNESIUM OXIDE 400 MG TABLET PO (07:54)
[2021-05-22] MEDS: FINASTERIDE 5 MG TABLET PO (07:54)
[2021-05-22] MEDS: PANTOPRAZOLE 40 MG TABLET PO (07:54)
[2021-05-22] MEDS: metFORMIN HCL XR 500 MG TAB.SR.24H PO (07:55)
[2021-05-22] MEDS: CLOPIDOGREL BISULFATE 75 MG TABLET PO (07:55)
[2021-05-22] MEDS: ASPIRIN 81 MG ENTERIC TABLET PO (07:56)
[2021-05-22] MEDS: TAMSULOSIN HCL 0.4 MG CAPSULE PO (07:56)
[2021-05-22] MEDS: amLODIPine BESYLATE 5 MG TABLET PO (07:56)
[2021-05-22] MEDS: lisinopriL 10 MG TABLET PO (07:57)
[2021-05-22] MEDS: MICONAZOLE NITRATE 2% CREAM 30 GM TUBE 1 APPLIC TOPICAL ×2 (07:58→21:11)
[2021-05-22 08:00] VITALS: BP 131/58; PULSE 75; RESP 17; TEMP 37.1; O2SAT 95
[2021-05-22 11:49] LABS: Glucose Point of Care 142 mg/dl (65-105)
--- NOTE | 2021-05-22 17:13 | PC.NURSE ---
1545 Call received from Whitney Hickman NP, stating patient had been seen and new orders were given.
[2021-05-22 17:59] LABS: Glucose Point of Care 133 mg/dl (65-105)
[2021-05-22] MEDS: GABAPENTIN 100 MG CAPSULE PO (21:11)
[2021-05-22] MEDS: traZODone HCL 50 MG TABLET PO (21:11)
[2021-05-22] MEDS: ATORVASTATIN 40 MG TABLET 80 MG PO (21:11)
[2021-05-22 21:15] LABS: Glucose Point of Care 124 mg/dl (65-105)
[2021-05-23] VITALS: BP 122/64; PULSE 79; RESP 20; TEMP 36.8; O2SAT 97
[2021-05-23 07:46] LABS: Glucose Point of Care 136 mg/dl (65-105)
[2021-05-23 08:00] VITALS: BP 98/53; PULSE 98; RESP 20; TEMP 37.1; O2SAT 95
[2021-05-23] MEDS: CALCIUM CARBONATE (OSCAL) 250 MG TABLET PO (08:20)
[2021-05-23] MEDS: lisinopriL 10 MG TABLET PO (08:20)
[2021-05-23] MEDS: metFORMIN HCL XR 500 MG TAB.SR.24H PO (08:20)
[2021-05-23] MEDS: FINASTERIDE 5 MG TABLET PO (08:21)
[2021-05-23] MEDS: DOCUSATE SODIUM 100 MG CAPSULE PO ×2 (08:21→16:47)
[2021-05-23] MEDS: amLODIPine BESYLATE 5 MG TABLET PO (08:21)
[2021-05-23] MEDS: TAMSULOSIN HCL 0.4 MG CAPSULE PO (08:22)
[2021-05-23] MEDS: CLOPIDOGREL BISULFATE 75 MG TABLET PO (08:22)
[2021-05-23] MEDS: PANTOPRAZOLE 40 MG TABLET PO (08:22)
[2021-05-23] MEDS: ASPIRIN 81 MG ENTERIC TABLET PO (08:22)
[2021-05-23] MEDS: MAGNESIUM OXIDE 400 MG TABLET PO (08:23)
[2021-05-23] MEDS: MICONAZOLE NITRATE 2% CREAM 30 GM TUBE 1 APPLIC TOPICAL ×2 (08:23→21:08)
[2021-05-23 11:34] LABS: Glucose Point of Care 186 mg/dl (65-105)
--- NOTE | 2021-05-23 12:55 | PCCCNOTE ---
Dr. Rosado requested a Prevera wound vac be placed on both groins. Ordered wound vacs and 1 box of dressings from [facility]. PO#[id number] and [facility] ref# [id number]. [facility] states it will take 3-5 days for wound vacs to be delivered and for dressings. Pt to f/u with Dr. Rosado on 05/30.
--- NOTE | 2021-05-23 14:24 | PC.NURSE ---
hospitalist notified, shivering, temp 99.0, congestion, cleared after cough, no distress noted
--- NOTE | 2021-05-23 14:48 | PM.EVENT ---
Event Note Event Note Event Note: received report that patient appeared congested and is with low grade fever, lab and cxr ordered for the am
--- NOTE | 2021-05-23 14:50 | PC.NURSE ---
Patient had moderate wheezes bilateral lungs. T 99.0, and noted lethargy. MD ordered CXR, spirometry and labs.
--- NOTE | 2021-05-23 15:28 | PCCCNOTE ---
Spoke with Kaylin with [facility] about Provena wound vacs and current drainage pt is having. Left groin dressing saturates and rt groin dressing is dry. Kaylin made aware of delay getting wound vacs for 3-5 days. She will talk with and call back tomorrow.
[2021-05-23 16:00] VITALS: BP 155/65; PULSE 103; RESP 18; TEMP 37.6; O2SAT 96
--- NOTE | 2021-05-23 16:11 | PCCCNOTE ---
[facility] rep Jose Manuel Salas [phone] will bring two Prevena wound vacs on 05/31.
[2021-05-23] MEDS: ACETAMINOPHEN 325 MG TABLET 650 MG PO ×2 (16:47→21:07)
--- NOTE | 2021-05-23 18:13 | PC.NURSE ---
Patient has had increased confusion today with noted wheezes and fine crackles in lower lobes on auscultation. Patient T elevated to 99.7, and patient c/o headache. Tylenol administered and tylenol effective for T and headache. MD notified and CXR ordered, along with spirometry at bedside.
[2021-05-23] MEDS: LORazepam (*CRX) 0.5 MG TABLET PO (20:54)
[2021-05-23 20:55] LABS: Glucose Point of Care 169 mg/dl (65-105)
[2021-05-23] MEDS: ATORVASTATIN 40 MG TABLET 80 MG PO (21:05)
[2021-05-23] MEDS: traZODone HCL 50 MG TABLET PO (21:06)
[2021-05-23] MEDS: GABAPENTIN 100 MG CAPSULE PO (21:06)
[2021-05-24] VITALS: BP 128/64; PULSE 68; RESP 20; TEMP 36.8; O2SAT 96
[2021-05-24 06:53] LABS: Hemoglobin 10.6 g/dL (12.4-15.3); Mean Corpuscular HGB Conc 32.1 g/dL (32.0-36.0); Mean Corpuscular Hemoglobin 29.9 pg (27.0-31.0); Mean Corpuscular Volume 93.2 fL (78.0-102.0); Mean Platelet Volume 9.7 fl (8.7-11.0); Platelet Count Result 309 K/mm3 (150-420); Red Blood Count 3.54 M/mm3 (4.70-6.10); Red Cell Distribution Width 16.4 % (11.6-14.4); White Blood Count 16.9 K/mm3 (4.8-10.8)
[2021-05-24 07:18] LABS: Alanine Aminotransferase 55 U/L (16-63); Albumin Level 2.4 g/dL (3.4-5.0); Alkaline Phosphatase 129 U/L (46-116); Anion Gap 8 mmol/L (8-16); Aspartate Amino Transferase 28 U/L (15-37); Bilirubin,Total 0.7 mg/dL (0.00-1.00); Blood Urea Nitrogen 29 mg/dL (7-18); Calcium 8.2 mg/dL (8.5-10.1); Carbon Dioxide 25 mmol/L (21-32); Chloride 103 mmol/L (98-108); Estimated CRCL calculation 38 ml/min; Estimated Glomerular Filt Rate 39; Glucose 137 mg/dL (70-99); Magnesium 2.2 mg/dL (1.8-2.4); Osmolality Calculated 289 mOsm/kg (285-295); Sodium 136 mmol/L (136-145); Total Protein 5.7 g/dL (6.4-8.2)
[2021-05-24 07:20] LABS: NT Pro B Type Natriuretic Pept 1270 pg/mL (0-450)
[2021-05-24 08:00] VITALS: BP 113/62; PULSE 81; RESP 20; TEMP 36.6; O2SAT 99
--- NOTE | 2021-05-24 08:13 | PM.EVENT ---
Event Note Event Note Event Note: Call and spoke with Dr. Rosado office nurse and gave her the information and question as to a preference of antibiotic if they would be ok with oral vs IV . Gave Vitals and labs from this morning and explained the wound vac was supposed to come today or this afternoon. Awaiting a call back as she is going to discuss with Dr. Rosado
[2021-05-24 08:20] LABS: Glucose Point of Care 149 mg/dl (65-105)
[2021-05-24] MEDS: ASPIRIN 81 MG ENTERIC TABLET PO (08:58)
[2021-05-24] MEDS: amLODIPine BESYLATE 5 MG TABLET PO (08:58)
[2021-05-24] MEDS: TAMSULOSIN HCL 0.4 MG CAPSULE PO (08:58)
[2021-05-24] MEDS: MAGNESIUM OXIDE 400 MG TABLET PO (08:58)
[2021-05-24] MEDS: metFORMIN HCL XR 500 MG TAB.SR.24H PO (08:58)
[2021-05-24] MEDS: lisinopriL 10 MG TABLET PO (08:58)
[2021-05-24] MEDS: PANTOPRAZOLE 40 MG TABLET PO (08:58)
[2021-05-24] MEDS: CLOPIDOGREL BISULFATE 75 MG TABLET PO (08:58)
[2021-05-24] MEDS: FINASTERIDE 5 MG TABLET PO (08:58)
[2021-05-24] MEDS: CALCIUM CARBONATE (OSCAL) 250 MG TABLET PO (08:58)
[2021-05-24] MEDS: DOCUSATE SODIUM 100 MG CAPSULE PO (08:59)
[2021-05-24] MEDS: MICONAZOLE NITRATE 2% CREAM 30 GM TUBE 1 APPLIC TOPICAL (09:24)
--- NOTE | 2021-05-24 09:53 | P.DS_ITS ---
DS: Admitting Diagnosis Discharge Date 05/24/2021 Admitting Diagnosis Weakness, AAA DS: Discharge Diagnosis Discharge Diagnosis (1) Weakness: Code(s): R53.1 - Weakness Status: Acute Assessment and Plan: ? Exhibit tolerance during physical activity as evidenced by a normal fluctuation of vital signs during physical activity. ? Patient will be ability to perform required activities of daily living. ? Provide appropriate nutrition for healing and strength. ? Use appropriate to prevent falls. ? Continue physical therapy/occupational therapy. (2) Diabetes mellitus: Code(s): E11.9 - Type 2 diabetes mellitus without complications Status: Acute Assessment and Plan: * Blood sugars below 300 * Continue glipizide with hypoglycemic protocol sliding scale and Accu-Cheks * Will adjust medication as needed (3) Paroxysmal A-fib: Code(s): I48.0 - Paroxysmal atrial fibrillation Status: Acute Assessment and Plan: * Controlled (4) AAA (abdominal aortic aneurysm): Code(s): I71.4 - Abdominal aortic aneurysm, without rupture Status: Acute Assessment and Plan: * Elective AAA repair * Status post open AAA repair with aortobifemoral bypass 05/02/2021 by * Incisional dressing will be removed in 7 to 8 days at physician's office on 05/22/2021 * Right groin incision with VAC therapy (prevena ), change left groin bandage every 24 hours * No heavy lifting over 10 pounds for 4 to 6 weeks (5) PAD (peripheral artery disease): Code(s): I73.9 - Peripheral vascular disease, unspecified Status: Acute Assessment and Plan: * continue statins with Plavix and aspirin (6) COPD (chronic obstructive pulmonary disease): Code(s): J44.9 - Chronic obstructive pulmonary disease, unspecified Status: Acute Assessment and Plan: * Stable * Albuterol as needed * Chest x-ray completed bilateral bibasilar atelectasis * I-S given (7) Leucocytosis: Code(s): D72.829 - Elevated white blood cell count, unspecified Status: Acute Assessment and Plan: * Chest Xray show Bilateral Basilar atelectasis * Reviewed the UA from 2 days ago negative * Wound VAC to be here this afternoon for bilateral groin area * Last night low-grade fever Tylenol given patient responded well afebrile at this time * Discussed with Dr. Rosado would like patient transferred to [facility] emergency room where he will meet patient (8) Neuropathy: Code(s): G62.9 - Polyneuropathy, unspecified Status: Acute Assessment and Plan: * Continue gabapentin (9) Chronic headache: Code(s): R51.9 - Headache, unspecified; G89.29 - Other chronic pain Status: Acute Assessment and Plan: * Tylenol ordered (10) HLD (hyperlipidemia): Code(s): E78.5 - Hyperlipidemia, unspecified Status: Acute Assessment and Plan: * Continue atorvastatin (11) Anemia: Code(s): D64.9 - Anemia, unspecified Status: Acute Assessment and Plan: * H&H 9.9 and 31.0 baseline at outside hospital appears to be * No active bleeding noted * Will follow up with primary care physician (12) ICD (implantable cardioverter-defibrillator) battery depletion: Code(s): Z45.02 - Encounter for adjustment and management of automatic implantable cardiac defibrillator Status: Acute (13) CAD (coronary artery disease): Code(s): I25.10 - Atherosclerotic heart disease of [place] coronary artery withou
--- NOTE | 2021-05-24 09:53 | PM.DS ---
DS: Admitting Diagnosis Discharge Date 05/24/2021 Admitting Diagnosis Weakness, AAA DS: Discharge Diagnosis Discharge Diagnosis (1) Weakness: Code(s): R53.1 - Weakness Status: Acute Assessment and Plan: ? Exhibit tolerance during physical activity as evidenced by a normal fluctuation of vital signs during physical activity. ? Patient will be ability to perform required activities of daily living. ? Provide appropriate nutrition for healing and strength. ? Use appropriate to prevent falls. ? Continue physical therapy/occupational therapy. (2) Diabetes mellitus: Code(s): E11.9 - Type 2 diabetes mellitus without complications Status: Acute Assessment and Plan: Blood sugars below 300 Continue glipizide with hypoglycemic protocol sliding scale and Accu-Cheks Will adjust medication as needed (3) Paroxysmal A-fib: Code(s): I48.0 - Paroxysmal atrial fibrillation Status: Acute Assessment and Plan: Controlled (4) AAA (abdominal aortic aneurysm): Code(s): I71.4 - Abdominal aortic aneurysm, without rupture Status: Acute Assessment and Plan: Elective AAA repair Status post open AAA repair with aortobifemoral bypass 05/02/2021 by Incisional dressing will be removed in 7 to 8 days at physician's office on 05/22/2021 Right groin incision with VAC therapy (prevena ), change left groin bandage every 24 hours No heavy lifting over 10 pounds for 4 to 6 weeks (5) PAD (peripheral artery disease): Code(s): I73.9 - Peripheral vascular disease, unspecified Status: Acute Assessment and Plan: continue statins with Plavix and aspirin (6) COPD (chronic obstructive pulmonary disease): Code(s): J44.9 - Chronic obstructive pulmonary disease, unspecified Status: Acute Assessment and Plan: Stable Albuterol as needed Chest x-ray completed bilateral bibasilar atelectasis I-S given (7) Leucocytosis: Code(s): D72.829 - Elevated white blood cell count, unspecified Status: Acute Assessment and Plan: Chest Xray show Bilateral Basilar atelectasis Reviewed the UA from 2 days ago negative Wound VAC to be here this afternoon for bilateral groin area Last night low-grade fever Tylenol given patient responded well afebrile at this time Discussed with Dr. Rosado would like patient transferred to [facility] emergency room where he will meet patient (8) Neuropathy: Code(s): G62.9 - Polyneuropathy, unspecified Status: Acute Assessment and Plan: Continue gabapentin (9) Chronic headache: Code(s): R51.9 - Headache, unspecified; G89.29 - Other chronic pain Status: Acute Assessment and Plan: Tylenol ordered (10) HLD (hyperlipidemia): Code(s): E78.5 - Hyperlipidemia, unspecified Status: Acute Assessment and Plan: Continue atorvastatin (11) Anemia: Code(s): D64.9 - Anemia, unspecified Status: Acute Assessment and Plan: H&H 9.9 and 31.0 baseline at outside hospital appears to be No active bleeding noted Will follow up with primary care physician (12) ICD (implantable cardioverter-defibrillator) battery depletion: Code(s): Z45.02 - Encounter for adjustment and management of automatic implantable cardiac defibrillator Status: Acute (13) CAD (coronary artery disease): Code(s): I25.10 - Atherosclerotic heart disease of [place] coronary artery without angina pectoris Status: Acute Assessment and Plan: Continue statins with Plavix and aspirin (14) HTN (hypertension): Code(s): I10 - Essential (primary) hypertension Status: Acute Assessment and Plan: Stable Continue lisinopril 20 mg daily and amlodipine 10 mg daily Vital signs as ordered Will adjust medications as needed DS: Summary Hospital Course Reason for hospitalization: AAA, weakness Hospital Course: Mr. Hickey
--- NOTE | 2021-05-24 09:53 | PM.EVENT ---
Event Note Event Note Event Note: Received a call back from Dr. Rosado's office [facility] who wanted to know patient could come to his clinic today. I informed him I would have his come pick him up and bring him down Dr. Rosado changed his mind and stated that he would like for patient to come to the emergency room in the emergency room to call him when he arrived. Patient will be discharged from swing bed to go to the emergency room at [facility]
--- NOTE | 2021-05-24 10:50 | PC.NURSE ---
Patient transferred to [facility] ED per request of Dr. Rosado. Patient's notified, transported to ED per [facility]. Report called to ED Charge nurse Ga.
--- NOTE | 2021-05-24 11:06 | PCPTNOTE ---
05/24/21, pt was not seen by PT this date as pt was transferred out before treatment time. -
--- NOTE | 2021-05-25 10:20 | PC.NURSE ---
discharge call back: patient admitted to [facility] from the ED, positive cultures, remains as inpatient there.
[2021-06-15 11:55] LABS: Glucose Point of Care 117 mg/dl (65-105)
== END 2021-05-24 10:50 | disposition short-term general hospital (02) | DRG 950 ==
PROVIDERS: Nurse Practitioner; Admitting Provider Internal Medicine; PCP Family Medicine; Visit Provider Internal Medicine
DX: Z48.812 Encounter for surgical aftercare following surgery on the circulatory system (principal); Z48.01 Encounter for change or removal of surgical wound dressing; Z46.89 Encounter for fitting and adjustment of other specified devices; I65.23 Occlusion and stenosis of bilateral carotid arteries; I25.10 Atherosclerotic heart disease of native coronary artery without angina pectoris; J44.9 Chronic obstructive pulmonary disease, unspecified; L89.629 Pressure ulcer of left heel, unspecified stage; R50.9 Fever, unspecified; D72.829 Elevated white blood cell count, unspecified; E11.40 Type 2 diabetes mellitus with diabetic neuropathy, unspecified; E11.51 Type 2 diabetes mellitus with diabetic peripheral angiopathy without gangrene; D64.9 Anemia, unspecified; I73.9 Peripheral vascular disease, unspecified; I48.0 Paroxysmal atrial fibrillation; N28.1 Cyst of kidney, acquired; R53.1 Weakness; R51.9 Headache, unspecified; G89.29 Other chronic pain; Z79.84 Long term (current) use of oral hypoglycemic drugs; Z86.73 Personal history of transient ischemic attack (TIA), and cerebral infarction without residual deficits; Z95.1 Presence of aortocoronary bypass graft; Z87.891 Personal history of nicotine dependence; Z95.810 Presence of automatic (implantable) cardiac defibrillator; Z79.82 Long term (current) use of aspirin
CPT/HCPCS: 36415; 71046; 80053; 81003; 82948; 83036; 83735; 83880; 85027; 92610; 97110; 97161; 97165; 97530; 97535; A9270